=== PATIENT | male | born 1960 | race African-American/Black ===

== ENCOUNTER 2016-09-09 12:47 | Day surgery (SDC) | payer OTHER ==
[2016-09-09] MEDS ORDERED: NACL 0.9% 1000 ML 1,000 ML IV SCH (14:00)
--- NOTE | 2016-09-09 14:30 | Anesthesia Day of Surgery ---
Anesthesia Day of Surgery - Day of Surgery Patient Examined: Yes Patient H&P Reviewed: Yes Patient is NPO: Yes
--- NOTE | 2016-09-09 14:30 | Anesthesia Consultation ---
Anesthesia Consult and Med Hx Date of service: 09/09/16 - Airway Anesthetic Teeth Evaluation: Good ROM Head & Neck: Adequate Mental/Hyoid Distance: Inadequate Mallampati Class: Class III Intubation Access Assessment: Probably Good - Pulmonary Exam CTA: Yes - Cardiac Exam Cardiac Exam: RRR - Pre-Operative Health Status ASA Pre-Surgery Classification: ASA3 Proposed Anesthetic Plan: MAC - Pulmonary Hx Smoking: No - Cardiovascular System Hx Hypertension: Yes Hx Cardia Arrhythmia: No (recently had to wear 24hr Holter monitor - no known arrhythmias) - Central Nervous System Hx Neuromuscular Disorder: No Hx Back Pain: Yes (surgery lower back 1994) - Gastrointestinal Hx Gastroesophageal Reflux Disease: Yes - Endocrine Hx Non-Insulin Dependent Diabetes: Yes (recent diagnosis 2 weeks ago) - Hematic Hx Anemia: No Hx Sickle Cell Disease: No - Other Systems Hx Alcohol Use: No Hx Substance Use: No Hx Cancer: No Hx Obesity: No - Additional Comments Anesthesia Medical History Comments: Patient currently being followed by machine spreader. Holter monitor for 24hr with unknown results at this time. Patient states "was done for sleepiness." Patient denies chest pain, headaches, dizziness, or dyspnea.
--- NOTE | 2016-09-09 15:23 | Post Anesthesia Evaluation ---
- Post Anesthesia Evaluation Patient Participated: Yes Airway Patent: Yes Stable Respiratory Function: Yes Nausea/Vomiting: No Temp > 96.8F: Yes Pain Manageable: Yes Adequeate Hydration: Yes Anesthesia Complications: No Block Receding Appropriately: Not Applicable Patient on Ventilator: No
[2016-09-09] MEDS ORDERED: DIPRIVAN 10 MG/ML IV ONE ×2 (15:44)
[2016-09-09] MEDS ORDERED: XYLOCAINE MPF 2% ONE (15:51)
[2016-09-09] MEDS ORDERED: WATER FOR IRRIG STERILE IR ONE (15:52)
--- NOTE | 2016-09-09 16:33 | Operative Report ---
Operative Report Operative Report: Date of procedure: 09/09/2016 Procedure: Colonoscopy with ablation Attending physician: Curtis Jeffers MD Livestock Haulier: Curtis Jeffers MD Indication: Colorectal cancer screening Consent: Informed consent was obtained after advising the patient and family regarding nature of this procedure, its indications, potential benefits as well as possible complications including but not limited to bleeding perforation and adverse reaction to medication, infection as well as other cardiopulmonary complications. An informed written and verbal consent was then obtained after due opportunity was provided for questions and answers. Monitoring: Patient was monitored continuously with pulse oximetry and electrocardiographic recordings as well as blood pressure recordings. Vital signs remained stable throughout this procedure with no untoward events. Preoperative assessment: Patient was assessed immediately prior to this procedure for capacity to tolerate monitored anesthesia care and moderate sedation as well as general anesthesia. Patient's ASA classification is 1, Mallampati class is 2, Hyomental distance is 3. Instrument: [employer] videocolonoscope Medications: Propofol given intravenously in divided doses. For details please refer to anesthesia records. Description of procedure: Patient was placed in the left lateral decubitus position after achieving sedation, a digital rectal examination was performed following which the colonoscope was introduced into the anal verge and advanced to the cecum which was identified by the cecal valve, the appendiceal orifice, as well as by the cecal strap and direct transillumination. The colonoscope was subsequently withdrawn with careful inspection of all mucosal surfaces. Patient tolerated this procedure well and was subsequently taken to the recovery room. The following findings were noted. Findings: There was some thick liquid densely adherent stool seen in various sections of the colon. This was vigorously irrigated. In the cecum, there was a flat diminutive polyp that was ablated. The rest of the colon was normal. On the retroflex view at the anal verge, patient had internal hemorrhoids. Impression: Diminutive cecal polyp status post ablation. Internal hemorrhoids. Retained stool. Plan: Repeat colonoscopy in 5 years. High-fiber diet.
--- NOTE | 2016-09-09 16:34 | Discharge Summary ---
Short Stay Discharge Plan Activity: advance as tolerated Weight Bearing Status: Weight Bear as Tolerated Diet: regular Follow up with: AMELIA LAMAS MD [Primary Care Provider] - 7 Days
[2016-09-09 17:03] VITALS: BP 98/74
== END 2016-09-09 12:48 | disposition home or self-care (01) ==
LOC: GIO 12:47
PROVIDERS: ATTEND Internal Medicine Gastroenterology
DX: Z12.11 Encounter for screening for malignant neoplasm of colon (principal); K63.5 Polyp of colon; K64.8 Other hemorrhoids; E11.9 Type 2 diabetes mellitus without complications; I10 Essential (primary) hypertension; K21.9 Gastro-esophageal reflux disease without esophagitis; Z98.890 Other specified postprocedural states; Z86.010 Personal history of colon polyps; Z79.899 Other long term (current) drug therapy; Z79.84 Long term (current) use of oral hypoglycemic drugs; Z83.71 Family history of colonic polyps
CPT/HCPCS: 45388; 82962; J2704; J7030

== ENCOUNTER 2021-12-18 09:05 | Day surgery (SDC) | payer OTHER ==
[~2021-12-18 09:05] MED LIST: SODIUM CHLORIDE 0.9% 1000 ML 1,000 ML IV SCH
--- NOTE | 2021-12-18 11:08 | Anesthesia Day of Surgery ---
Anesthesia Day of Surgery - Day of Surgery Patient Examined: Yes Patient H&P Reviewed: Yes Patient is NPO: Yes
--- NOTE | 2021-12-18 11:09 | Anesthesia Consultation ---
Anesthesia Consult and Med Hx Date of service: 12/18/21 - Airway Anesthetic Teeth Evaluation: Good ROM Head & Neck: Adequate Mental/Hyoid Distance: Adequate Mallampati Class: Class I Intubation Access Assessment: Good - Pre-Operative Health Status ASA Pre-Surgery Classification: ASA2 Proposed Anesthetic Plan: MAC - Pulmonary Hx Smoking: No Hx Sleep Apnea: No - Cardiovascular System Hx Hypertension: Yes Hx Cardia Arrhythmia: No - Central Nervous System Hx Neuromuscular Disorder: No Hx Back Pain: Yes (surgery lower back 1994) - Gastrointestinal Hx Ulcer: Yes Hx Gastroesophageal Reflux Disease: Yes - Endocrine Hx Liver Disease: Yes (Increased LFTs) Hx Non-Insulin Dependent Diabetes: Yes (PRE) - Hematic Hx Anemia: Yes Hx Sickle Cell Disease: No - Other Systems Hx Alcohol Use: No Hx Substance Use: No Hx Cancer: No Hx Obesity: Yes
[2021-12-18] MEDS ORDERED: propofoL 200 MG/20 ML VIAL IV ONE ×2 (11:35→11:59)
--- NOTE | 2021-12-18 12:18 | Short Stay Summary ---
Short Stay Documentation Date of service: 12/18/21 Narrative H&P: The patient presents for surveillance colonoscopy for hx polyps. Last study over 5 years ago. - History Past Medical History: GERD, hypertension, hyperlipidemia Past Surgical History: Other (back surgery) Social history: no significant social history - Allergies and Medications Current Medications: Allergies No Known Allergies Allergy (Verified 09/09/16 13:12) Home Medications Medication Instructions Recorded Confirmed Last Taken Type AtorvaSTATin 20 mg PO DAILY 09/06/16 09/09/16 09/07/16 History Losartan-Hctz 100-25 mg Tab 100 mg PO DAILY 09/06/16 09/09/16 09/08/16 History Omeprazole 20 mg PO DAILY 09/06/16 09/09/16 09/07/16 History Phentermine HCl 37.5 mg PO DAILY 09/06/16 09/09/16 09/07/16 History clomiPHENE 25 mg PO DAILY 09/06/16 09/09/16 09/07/16 History metFORMIN 500 mg PO DAILY 09/06/16 09/09/16 09/07/16 History Active Medications Sodium Chloride (Nacl 0.9% 1000 Ml) 1,000 mls @ 50 mls/hr IV DIRECT PIERCE - Physical exam General appearance: no acute distress, well-nourished Integumentary: no rash, no growths, no abnormal pigmentation HEENT: Atraumatic, PERRLA, EOMI Lungs: Clear to auscultation, Normal air movement Breasts: deferred Heart: Regular rate, Normal S1, Normal S2, No murmurs Gastrointestinal: normoactive bowel sounds, no tenderness, no distended, no masses, no organomegaly, obese Male Genitourinary: deferred Rectal Exam: normal exam-external/orifice, no tenderness, no mass Extremities: no ischemia, pulses intact, pulses symmetrical, No edema, normal temperature, normal color, Full ROM Neurological: Normal gait, Normal speech, Strength at 5/5 X4 ext, Normal tone, Sensation intact, Cranial nerves 3-12 NL - Brief post op/procedure progress note Date of procedure: 12/18/21 Procedure: see dictation Estimated blood loss: none Pathology: list (sigmoid polyp) Specimen disposition: to lab Condition: stable - Disposition Condition at discharge: Good Disposition: 01 HOME / SELF CARE / HOMELESS - Discharge Diagnoses (1) History of colon polyps Status: Acute Short Stay Discharge Plan Activity: other (no driving for 24 hours) Weight Bearing Status: Full Weight Bearing Diet: regular Follow up with: AMELIA LAMAS MD [Primary Care Provider] - 7 Days
--- NOTE | 2021-12-18 12:19 | Operative Report ---
Operative Report Operative Report: Date of procedure: 12/18/2021 Preprocedure diagnosis: History of colon polyps, last study over 5 years ago Post procedure diagnosis: 6 mm pedunculated sigmoid colon polyp. Procedure: Colonoscopy to the cecum with cold snare polypectomy Endoscopist: Dr. Marcano Anesthesia: Monitored anesthesia care per anesthesia department Estimated blood loss: 0 Medications: Monitored anesthesia care. See separate report by anesthesia for details. After careful discussion of the nature and purpose of the procedure as well as details of the technique risks benefits and alternatives the patient gave consent. Please see recent history and physical from the office. The patient was placed in the left lateral decubitus position and medicated per anesthesia. A rectal exam was performed sphincter tone was normal there were no masses palpable. The RadMitn 570 scope was passed transanally and advanced under continuous direct vision without difficulty to the cecum. The colon was well prepared. The cecum was normal. The ascending colon was normal and on forward and retroflexed views. The transverse colon and descending colon were normal. There was a 6 mm pedunculated polyp in the mid sigmoid colon which was removed with cold snare resection and retrieved by suction. The rectum was normal on f orward and retroflexed views. The procedure was well-tolerated overall and the patient was observed in recovery. Conclusions: Sigmoid colon polyp otherwise normal study. Plan: Await pathology. Repeat colonoscopy in 5 years. Signed electronically: Jacinto Marcano M.D.
[2021-12-18 15:40] VITALS: BP 130/77
== END 2021-12-18 12:45 | disposition home or self-care (01) ==
LOC: GIO 09:05
PROVIDERS: ATTEND Internal Medicine Gastroenterology
DX: Z12.11 Encounter for screening for malignant neoplasm of colon (principal); D12.5 Benign neoplasm of sigmoid colon; E78.00 Pure hypercholesterolemia, unspecified; I10 Essential (primary) hypertension; K21.9 Gastro-esophageal reflux disease without esophagitis; E66.9 Obesity, unspecified; E11.9 Type 2 diabetes mellitus without complications; Z86.010 Personal history of colon polyps; Z79.899 Other long term (current) drug therapy; Z79.84 Long term (current) use of oral hypoglycemic drugs; Z98.890 Other specified postprocedural states; Z68.33 Body mass index [BMI] 33.0-33.9, adult
CPT/HCPCS: 45385; 88305; J2704; J7030